=== PATIENT | female | born 1980 | race African-American/Black ===

== ENCOUNTER 2020-06-05 15:32 | Inpatient (IN) | payer OTHER ==
[2020-06-05 19:58] VITALS: BMI 21.9
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
[2020-06-05] MEDS ORDERED: NICOTINE POLACRILEX 2 MG GUM BUC PRN (20:46)
[2020-06-05] MEDS ORDERED: chlordiazePOXIDE HCL 25 MG CAPSULE PO PRN (20:46)
[2020-06-05] MEDS ORDERED: METHOCARBAMOL 500 MG TABLET PO PRN (20:46)
[2020-06-05] MEDS ORDERED: MAGNESIUM CITRATE 300 ML BOTTLE PO PRN (20:46)
[2020-06-05] MEDS ORDERED: BISMUTH SUBSALICYLATE 524 MG/30 ML UD PO PRN (20:46)
[2020-06-05] MEDS ORDERED: IBUPROFEN 400 MG TABLET (FP) PO PRN (20:46)
[2020-06-05] MEDS ORDERED: ACETAMINOPHEN 325 MG TABLET (FP) PO PRN ×2 (20:46)
[2020-06-05] MEDS ORDERED: MENTHOL/PHENOL 1 EACH UD MM PRN (20:46)
[2020-06-05] MEDS ORDERED: MAGNESIUM HYDROX 2400MG/30ML ORAL SUSPENSION 30 ML CUP PO PRN (20:46)
[2020-06-05] MEDS ORDERED: MAG HYDROX/AL HYDROX/SIMETH 30 ML UNIT-DOSE CUP PO PRN (20:46)
[2020-06-05] MEDS ORDERED: hydrOXYzine PAMOATE 25 MG CAPSULE (FP) PO PRN (20:46)
[2020-06-05] MEDS ORDERED: ONDANSETRON *ODT* 4 MG TABLET SL ONE (21:15)
[2020-06-05] MEDS: THIAMINE HCL 100 MG TABLET (FP) PO SCH (22:23)
[2020-06-05] MEDS: chlordiazePOXIDE HCL 25 MG CAPSULE PO SCH (22:23)
[2020-06-05] MEDS: MELATONIN 5 MG TABLETS PO SCH (22:23)
[2020-06-06] MEDS: chlordiazePOXIDE HCL 25 MG CAPSULE PO SCH ×4 (05:59→22:32)
[2020-06-06] MEDS: PRENATAL VITAMINS W/ FOLIC ACID TABLET (FP) PO SCH (10:24)
[2020-06-06] MEDS: NICOTINE 14 MG/24 HOURS TOPICAL PATCH TD SCH (10:24)
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
[2020-06-06 12:04] LABS: HEMATOCRIT 38.3 % (32.4-45.2); HEMOGLOBIN 12.6 GM/dL (10.7-15.3); MCH 31.1 pg (25.7-33.7); MCHC 32.9 g/dl (32.0-36.0); MEAN CELL VOLUME 94.5 fl (80-96); MEAN PLT VOLUME 8.9 fl (7.5-11.1); PLATELET COUNT 192 K/MM3 (134-434); RBC 4.05 M/mm3 (3.60-5.2); RDW 14.8 % (11.6-15.6); WHITE BLOOD COUNT 3.2 K/mm3 (4.0-10.0)
[2020-06-06 12:17] LABS: BILIRUBIN,TOTAL 0.4 mg/dL (0.2-1); BLOOD UREA NITROGEN 12.3 mg/dL (7-18); CALCIUM 8.5 mg/dL (8.5-10.1); CREATININE 0.9 mg/dL (0.55-1.3); POTASSIUM 3.6 mmol/L (3.5-5.1); TOT PROT 6.3 g/dl (6.4-8.2)
--- NOTE | 2020-06-06 13:47 | PN ---
S CIWA - CIWA Score Nausea/Vomitin-Mild Nausea/No Vomiting Muscle Tremors: 3 Anxiety: 3 Agitation: 2 Paroxysmal Sweats: 3 Orientation: 0-Oriented Tacttile Disturbances: 1-Very Mild Itch/Numbness Auditory Disturbances: 0-None Visual Disturbances: 0-None Headache: 0-None Present CIWA-Ar Total Score: 13 B[facility] Progress Note (SOAP) Subjective: Feels ok Objective: 06/06/20 13:44 Last Vital Signs Temp Pulse Resp BP Pulse Ox 97.3 F L 98 H 16 112/71 99 06/06/20 08:43 06/06/20 10:03 06/06/20 08:43 06/06/20 10:03 06/06/20 08:43 Laboratory Tests 06/06/20 06/06/20 06/06/20 07:25 07:25 07:25 WBC 3.2 L RBC 4.05 Hgb 12.6 Hct 38.3 MCV 94.5 MCH 31.1 MCHC 32.9 RDW 14.8 D Plt Count 192 MPV 8.9 Sodium 140 Potassium 3.6 Chloride 107 Carbon Dioxide 25 Anion Gap 8 BUN 12.3 Creatinine 0.9 Est GFR (CKD-EPI)AfAm 94.01 Est GFR (CKD-EPI)NonAf 81.11 Random Glucose 111 H Calcium 8.5 Total Bilirubin 0.4 AST 16 ALT 16 Alkaline Phosphatase 55 Total Protein 6.3 L Albumin 3.0 L Syphilis Serology Non-reactive Labs reviewed: serum glucose 111 (mildly elevated), albumin 3.0 (low) Assessment: 06/06/20 13:45 Withdrawal sxs Noted with mild hyperglycemia and hypoalbuminemia Plan: Continue detox Encouraged PO water intake Hyperglycemia, mild: most likely due to withdrawal, repeat fasting glucose Hypoalbuminemia: encourage diet, continue ensure TID
[2020-06-06] MEDS ORDERED: traZODone HCL 50 MG TABLET (FP) PO SCH (22:00)
[2020-06-06] MEDS: THIAMINE HCL 100 MG TABLET (FP) PO SCH (22:32)
[2020-06-06] MEDS: MELATONIN 5 MG TABLETS PO SCH (22:32)
[2020-06-06] MEDS: levETIRAcetam 250 MG TABLET PO SCH (22:32)
[2020-06-07] MEDS: chlordiazePOXIDE HCL 25 MG CAPSULE PO SCH ×2 (06:19→11:02)
[2020-06-07 06:43] VITALS: TEMP 97.3
--- NOTE | 2020-06-07 09:29 | EKG ---
Test Reason : Blood Pressure : / mmHG Vent. Rate : 058 BPM Atrial Rate : 058 BPM P-R Int : 166 ms QRS Dur : 100 ms QT Int : 448 ms P-R-T Axes : 046 061 058 degrees QTc Int : 439 ms SINUS BRADYCARDIA WITH PREMATURE ATRIAL COMPLEXES OTHERWISE NORMAL ECG NO PREVIOUS ECGS AVAILABLE Confirmed by Sharyn Collins ([id number]) on 06/07/2020 9:29:36 AM Referred By: Confirmed By:Sharyn Collins
[2020-06-07] MEDS ORDERED: SERTRALINE HCL 50 MG TABLET (FP) PO SCH (10:00)
[2020-06-07] MEDS: levETIRAcetam 250 MG TABLET PO SCH (11:01)
[2020-06-07] MEDS: PRENATAL VITAMINS W/ FOLIC ACID TABLET (FP) PO SCH (11:02)
[2020-06-07] MEDS: NICOTINE 14 MG/24 HOURS TOPICAL PATCH TD SCH (11:02)
[2020-06-07 13:50] VITALS: BP 91/46; PULSE 625
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
--- NOTE | 2020-06-07 15:29 | PN ---
[place] Progress Note Note: patient did not want to complete treatment,high risk of relapsing explained,understood, seen by counselor,signed release ama alert,oriented x 3 ambulation on the unit no abdominal pain patient signed release ama stated she will [facility] left the unit in stable condition time spending in discharge 30 minutes
--- NOTE | 2020-06-07 15:31 | DS ---
[facility] Detox Discharge Summary Admission Date: 06/05/20 Discharge Date: 06/07/20 - History Present History: Alcohol Dependence, Cocaine Dependence Additional Comments: alert,oriented x 3 ambulation on the unit no abdominal pain patient did not want to complete treatment,high risk relapsing explained,patient understood, seen by counselor, signed release ama,stated she will go to [facility] for follow up left the unit in stable condition total discharge time 30 minutes Pertinent Past History: ptsd mood disorder substance indued sleep disorder asthma bipolar disorder - Physical Exam Results Vital Signs: Vital Signs Temperature 97.3 F L 06/07/20 12:48 Pulse Rate 625 H 06/07/20 12:48 Respiratory Rate 17 06/07/20 12:48 Blood Pressure 91/46 L 06/07/20 12:48 O2 Sat by Pulse Oximetry (%) 99 06/07/20 13:50 Pertinent Admission Physical Exam Findings: withdrawal sign and symptom - Medication Discharge Medications: Ambulatory Orders Albuterol Sulfate Inhaler - [Ventolin HFA Inhaler -] 2 inh IH Q4H PRN #1 inhaler 04/19/20 - Diagnosis (1) Alcohol dependence with uncomplicated withdrawal Current Visit: Yes Status: Acute (2) Asthma Current Visit: Yes Status: Chronic (3) Bipolar disorder Current Visit: Yes Status: Chronic (4) Cocaine dependence Current Visit: Yes Status: Chronic Qualifiers: Substance use status: uncomplicated Qualified Code(s): F14.20 - Cocaine dependence, uncomplicated (5) Nicotine dependence Current Visit: Yes Status: Chronic Qualifiers: Nicotine product type: cigarettes Substance use status: uncomplicated Qualified Code(s): F17.210 - Nicotine dependence, cigarettes, uncomplicated (6) PTSD (post-traumatic stress disorder) Current Visit: Yes Status: Chronic (7) Mood disorder Current Visit: Yes Status: Suspected (8) Weight loss Current Visit: No Status: Acute - AMA Did Patient Leave Against Medical Advice: Yes
[2020-06-08] MEDS ORDERED: chlordiazePOXIDE HCL 10 MG CAPSULE PO PRN
[2020-06-08] MEDS ORDERED: chlordiazePOXIDE HCL 10 MG CAPSULE PO SCH (05:00)
[2020-06-09] MEDS ORDERED: chlordiazePOXIDE HCL 10 MG CAPSULE PO SCH (05:00)
[2020-06-10] MEDS ORDERED: chlordiazePOXIDE HCL 10 MG CAPSULE PO ONE (05:00)
== END 2020-06-07 16:28 | disposition left against medical advice (07) | DRG 770 ==
LOC: YASAS 15:32 → Y6N 20:54
PROVIDERS: ADMIT Allergy & Immunology; ATTEND Allergy & Immunology
PROC: HZ2ZZZZ Detoxification Services for Substance Abuse Treatment (ICD-10-PCS; principal; 2020-06-05)
DX: F10.230 Alcohol dependence with withdrawal, uncomplicated (principal); F14.20 Cocaine dependence, uncomplicated; F17.210 Nicotine dependence, cigarettes, uncomplicated; F19.280 Other psychoactive substance dependence with psychoactive substance-induced anxiety disorder; F19.24 Other psychoactive substance dependence with psychoactive substance-induced mood disorder; F39 Unspecified mood [affective] disorder; F43.10 Post-traumatic stress disorder, unspecified; F31.9 Bipolar disorder, unspecified; E88.09 Other disorders of plasma-protein metabolism, not elsewhere classified; J45.909 Unspecified asthma, uncomplicated; G40.909 Epilepsy, unspecified, not intractable, without status epilepticus; D64.9 Anemia, unspecified; R63.4 Abnormal weight loss; Z68.21 Body mass index [BMI] 21.0-21.9, adult; Z88.5 Allergy status to narcotic agent; Z56.0 Unemployment, unspecified; Z59.0 Homelessness; R73.9 Hyperglycemia, unspecified; Z86.79 Personal history of other diseases of the circulatory system; Z98.890 Other specified postprocedural states
CPT/HCPCS: 36415; 80053; 85027; 86780; 93005; 93010; U0003

== ENCOUNTER 2020-07-28 12:44 | Inpatient (IN) | payer OTHER ==
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
[2020-07-28 14:54] VITALS: BMI 20.3
[2020-07-28] MEDS ORDERED: ONDANSETRON *ODT* 4 MG TABLET SL PRN (14:54)
[2020-07-28] MEDS ORDERED: MAGNESIUM HYDROX 2400MG/30ML ORAL SUSPENSION 30 ML CUP PO PRN (14:54)
[2020-07-28] MEDS ORDERED: METHOCARBAMOL 500 MG TABLET PO PRN (14:54)
[2020-07-28] MEDS ORDERED: IBUPROFEN 400 MG TABLET (FP) PO PRN (14:54)
[2020-07-28] MEDS ORDERED: MAG HYDROX/AL HYDROX/SIMETH 30 ML UNIT-DOSE CUP PO PRN (14:54)
[2020-07-28] MEDS ORDERED: BISMUTH SUBSALICYLATE 524 MG/30 ML UD PO PRN (14:54)
[2020-07-28] MEDS ORDERED: ACETAMINOPHEN 325 MG TABLET (FP) PO PRN ×2 (14:54)
[2020-07-28] MEDS ORDERED: chlordiazePOXIDE HCL 25 MG CAPSULE PO PRN (14:54)
[2020-07-28] MEDS ORDERED: MENTHOL/PHENOL 1 EACH UD MM PRN (14:54)
[2020-07-28] MEDS ORDERED: MAGNESIUM CITRATE 300 ML BOTTLE PO PRN (14:54)
[2020-07-28] MEDS ORDERED: NICOTINE POLACRILEX 2 MG GUM BUC PRN (14:54)
[2020-07-28] MEDS ORDERED: ALBUTEROL SO4 HFA INHALER IH PRN (14:58)
[2020-07-28 17:43] LABS: HEMATOCRIT 35.2 % (32.4-45.2); HEMOGLOBIN 11.7 GM/dL (10.7-15.3); MCH 31.6 pg (25.7-33.7); MCHC 33.2 g/dl (32.0-36.0); MEAN CELL VOLUME 95.1 fl (80-96); MEAN PLT VOLUME 8.9 fl (7.5-11.1); PLATELET COUNT 175 K/MM3 (134-434); RDW 14.7 % (11.6-15.6); WHITE BLOOD COUNT 3.4 K/mm3 (4.0-10.0)
[2020-07-28 17:56] LABS: BILIRUBIN,TOTAL 0.3 mg/dL (0.2-1); BLOOD UREA NITROGEN 15.3 mg/dL (7-18); CALCIUM 8.5 mg/dL (8.5-10.1); POTASSIUM 3.7 mmol/L (3.5-5.1); TOT PROT 6.3 g/dl (6.4-8.2)
[2020-07-28] MEDS: hydrOXYzine PAMOATE 25 MG CAPSULE (FP) PO SCH ×2 (18:07→23:19)
[2020-07-28] MEDS: chlordiazePOXIDE HCL 25 MG CAPSULE PO SCH ×2 (18:07→23:20)
[2020-07-28] MEDS: PRENATAL VITAMINS W/ FOLIC ACID TABLET (FP) PO SCH (18:07)
[2020-07-28] MEDS: NICOTINE 21 MG/24 HOURS TOPICAL PATCH TD SCH (18:08)
[2020-07-28] MEDS: MELATONIN 5 MG TABLETS PO SCH (23:19)
[2020-07-28] MEDS: THIAMINE HCL 100 MG TABLET (FP) PO SCH (23:20)
[2020-07-29] MEDS: chlordiazePOXIDE HCL 25 MG CAPSULE PO SCH ×4 (06:37→22:29)
[2020-07-29] MEDS: hydrOXYzine PAMOATE 25 MG CAPSULE (FP) PO SCH ×3 (06:38→14:17)
[2020-07-29] MEDS: PRENATAL VITAMINS W/ FOLIC ACID TABLET (FP) PO SCH (11:14)
[2020-07-29] MEDS: NICOTINE 21 MG/24 HOURS TOPICAL PATCH TD SCH (11:14)
[2020-07-29] MEDS ORDERED: hydrOXYzine PAMOATE 25 MG CAPSULE (FP) PO PRN (14:24)
--- NOTE | 2020-07-29 14:26 | PN ---
S CIWA - CIWA Score Nausea/Vomitin-No Nausea/No Vomiting Muscle Tremors: 3 Anxiety: 3 Agitation: 3 Paroxysmal Sweats: 2 Orientation: 0-Oriented Tacttile Disturbances: 0-None Auditory Disturbances: 0-None Visual Disturbances: 0-None Headache: 0-None Present CIWA-Ar Total Score: 11 S Progress Note (SOAP) Subjective: sweats shakes restless Objective: 07/29/20 14:26 Vital Signs Temperature 97.5 F L 07/29/20 09:08 Pulse Rate 70 07/29/20 09:08 Respiratory Rate 18 07/29/20 09:08 Blood Pressure 96/50 L 07/29/20 09:08 O2 Sat by Pulse Oximetry (%) 96 07/29/20 09:08 Laboratory Tests 07/28/20 07/28/20 07/28/20 15:00 15:00 15:10 WBC 3.4 L RBC 3.70 Hgb 11.7 Hct 35.2 MCV 95.1 MCH 31.6 MCHC 33.2 RDW 14.7 Plt Count 175 MPV 8.9 Sodium 140 Potassium 3.7 Chloride 109 H Carbon Dioxide 25 Anion Gap 6 L BUN 15.3 Creatinine 1.0 Est GFR (CKD-EPI)AfAm 82.76 Est GFR (CKD-EPI)NonAf 71.41 Random Glucose 105 Calcium 8.5 Total Bilirubin 0.3 AST 29 ALT 23 Alkaline Phosphatase 102 Total Protein 6.3 L Albumin 3.0 L Syphilis Serology Non-reactive labs noted aaox3 ambulating no acute distress Assessment: 07/29/20 14:26 withdrawals Plan: continue detox
[2020-07-29] MEDS: THIAMINE HCL 100 MG TABLET (FP) PO SCH (22:29)
[2020-07-29] MEDS: MELATONIN 5 MG TABLETS PO SCH (22:29)
[2020-07-30] MEDS: chlordiazePOXIDE HCL 25 MG CAPSULE PO SCH ×4 (06:33→23:46)
[2020-07-30] MEDS: NICOTINE 21 MG/24 HOURS TOPICAL PATCH TD SCH (10:53)
[2020-07-30] MEDS: PRENATAL VITAMINS W/ FOLIC ACID TABLET (FP) PO SCH (10:53)
--- NOTE | 2020-07-30 11:46 | PN ---
[facility] CIWA - CIWA Score Nausea/Vomitin-No Nausea/No Vomiting Muscle Tremors: 3 Anxiety: 2 Agitation: 3 Paroxysmal Sweats: 2 Orientation: 0-Oriented Tacttile Disturbances: 0-None Auditory Disturbances: 0-None Visual Disturbances: 0-None Headache: 0-None Present CIWA-Ar Total Score: 10 S Progress Note (SOAP) Subjective: tired sweats chills interrupted sleep Objective: 07/30/20 11:46 Vital Signs Temperature 98.2 F 07/30/20 05:49 Pulse Rate 60 07/30/20 05:49 Respiratory Rate 16 07/30/20 05:49 Blood Pressure 91/52 L 07/30/20 05:49 O2 Sat by Pulse Oximetry (%) 98 07/30/20 05:49 Laboratory Tests 07/28/20 07/28/20 07/28/20 15:00 15:00 15:10 WBC 3.4 L RBC 3.70 Hgb 11.7 Hct 35.2 MCV 95.1 MCH 31.6 MCHC 33.2 RDW 14.7 Plt Count 175 MPV 8.9 Sodium 140 Potassium 3.7 Chloride 109 H Carbon Dioxide 25 Anion Gap 6 L BUN 15.3 Creatinine 1.0 Est GFR (CKD-EPI)AfAm 82.76 Est GFR (CKD-EPI)NonAf 71.41 Random Glucose 105 Calcium 8.5 Total Bilirubin 0.3 AST 29 ALT 23 Alkaline Phosphatase 102 Total Protein 6.3 L Albumin 3.0 L Syphilis Serology Non-reactive COVID-19 ([place]) 07/28/20 16:35 WBC RBC Hgb Hct MCV MCH MCHC RDW Plt Count MPV Sodium Potassium Chloride Carbon Dioxide Anion Gap BUN Creatinine Est GFR (CKD-EPI)AfAm Est GFR (CKD-EPI)NonAf Random Glucose Calcium Total Bilirubin AST ALT Alkaline Phosphatase Total Protein Albumin Syphilis Serology COVID-19 ([place]) Not detected labs noted aaox3 ambulating no acute distress Assessment: 07/30/20 11:46 withdrawals Plan: continue detox
[2020-07-30] MEDS: MELATONIN 5 MG TABLETS PO SCH (23:46)
[2020-07-30] MEDS: THIAMINE HCL 100 MG TABLET (FP) PO SCH (23:46)
[2020-07-31] MEDS ORDERED: chlordiazePOXIDE HCL 10 MG CAPSULE PO PRN
[2020-07-31] MEDS ORDERED: chlordiazePOXIDE HCL 10 MG CAPSULE PO SCH (05:00)
--- NOTE | 2020-07-31 10:26 | PN ---
[facility] Progress Note Note: Shortly after ECONOMIC SPECIALIST arrived on Detox Unit, Patient was observed walking up and down camacho and becoming quite agitated. Within short time, Patient became verbally and physically aggressive. Security staff called to Detox Unit. Patient observed pushing objects off of counter in front of Nurses' Station onto floor. Patient then went into her room and threw garbage pail onto floor outside of room. Patient then went back to Nurses Station and began to climb over counter at Nurses' Station. Patient became physically and verbally aggressive and confrontational with Security staff as they attempted to assist her off of counter in front of Nurs[facility]' Station. Patient continued to be aggressive and confrontational with Security near Nurses station for several minutes after she was moved off of counter at Nurses' Station. Detox Unit Psychiatrist not available at this time for evaluation of Patient. [facility] ([place], [place]) contacted so that Patient may be transferred there for Psychiatric Evaluation. Report given to Abbey Reeder RN at ER. Patient taken via ambulance to [facility] for Psychiatric Evaluation.
[2020-07-31 11:39] VITALS: BP 92/50; PULSE 81; TEMP 97.5
--- NOTE | 2020-07-31 19:43 | DS ---
[facility] Detox Discharge Summary Admission Date: 07/28/20 Discharge Date: 07/31/20 - History Present History: Alcohol Dependence, Cocaine Dependence Additional Comments: See Previous [facility] Progress Note: Shortly after COLLEGE PHYSICS INSTRUCTOR arrived on Detox Unit, Patient was observed walking up and down camacho and becoming quite agitated. Within short time, Patient became verbally and physically aggressive. Security staff called to Detox Unit. Patient observed pushing objects off of counter in front of [facility] onto floor. Patient then went into her room and threw garbage pail onto floor outside of room. Patient then went back to Nurses Station and began to climb over counter at Nurs[facility]' Station. Patient became physically and verbally aggressive and confrontational with Security staff as they attempted to assist her off of counter in front of Nurses' Station. Patient continued to be aggressive and confrontational with Security near Nurses station for several minutes after she was moved off of counter at Nurses' Station. Detox Unit Psychiatrist not available at this time for evaluation of Patient. [facility] ([place], [place]) contacted so that Patient may be transferred there for Psychiatric Evaluation. Report given to Abbey Reeder RN at ER. Patient taken via ambulance to [facility] for Psychiatric Evaluation. Pertinent Past History: COPD, History of Bipolar Disorder, History of Asthma, History of PTSD, History of Depression, History of CHF, Nicotine Dependence. - Physical Exam Results Vital Signs: Vital Signs Temperature 97.5 F L 07/31/20 09:00 Pulse Rate 81 07/31/20 09:00 Respiratory Rate 20 07/31/20 09:00 Blood Pressure 92/50 L 07/31/20 09:00 O2 Sat by Pulse Oximetry (%) 98 07/31/20 09:00 Pertinent Admission Physical Exam Findings: WITHDRAWAL SYMPTOMS. Laboratory Tests 07/28/20 07/28/20 07/28/20 15:00 15:00 15:10 WBC 3.4 L RBC 3.70 Hgb 11.7 Hct 35.2 MCV 95.1 MCH 31.6 MCHC 33.2 RDW 14.7 Plt Count 175 MPV 8.9 Sodium 140 Potassium 3.7 Chloride 109 H Carbon Dioxide 25 Anion Gap 6 L BUN 15.3 Creatinine 1.0 Est GFR (CKD-EPI)AfAm 82.76 Est GFR (CKD-EPI)NonAf 71.41 Random Glucose 105 Calcium 8.5 Total Bilirubin 0.3 AST 29 ALT 23 Alkaline Phosphatase 102 Total Protein 6.3 L Albumin 3.0 L Syphilis Serology Non-reactive COVID-19 ([place]) 07/28/20 16:35 WBC RBC Hgb Hct MCV MCH MCHC RDW Plt Count MPV Sodium Potassium Chloride Carbon Dioxide Anion Gap BUN Creatinine Est GFR (CKD-EPI)AfAm Est GFR (CKD-EPI)NonAf Random Glucose Calcium Total Bilirubin AST ALT Alkaline Phosphatase Total Protein Albumin Syphilis Serology COVID-19 ([place]) Not detected Lab Results noted. - Treatment Hospital Course: Detox Protocol Followed Patient has Accepted a Rehab Referral to: Pt. transferred to [facility] ER for Psychiatric Evaluation. - Medication Discharge Medications: Ambulatory Orders Albuterol Sulfate Inhaler - [Ventolin HFA Inhaler -] 2 inh IH Q4H PRN #1 inhaler 04/19/20 - Diagnosis (1) Alcohol dependence with uncomplicated withdrawal Status: Acute (2) Asthma Status: Chronic (3) Nicotine dependence Status: Chronic Qualifiers: Nicotine product type: cigarettes Substance use status: uncomplicated Qualified Code(s): F17.210 - Nicotine dependence, cigarettes, uncomplicated (4) PTSD (post-traumatic stress disorder) Status: Chronic (5) Substance induced mood disorder Status: Acute (6) Bipolar disorder Status: Chronic Qualifiers: Active/Remission status: remission status unspecified Qualified Code(s): F31.9 - Bipolar disorder, unspecified - AMA Did Patient Leave Against Medical Advice: No
[2020-08-01] MEDS ORDERED: chlordiazePOXIDE HCL 10 MG CAPSULE PO SCH (05:00)
[2020-08-02] MEDS ORDERED: chlordiazePOXIDE HCL 10 MG CAPSULE PO ONE (05:00)
== END 2020-07-31 09:28 | disposition short-term general hospital (02) | DRG 774 ==
LOC: YASAS 12:44 → Y6N 16:31
PROVIDERS: ADMIT Allergy & Immunology; ATTEND Allergy & Immunology
PROC: HZ2ZZZZ Detoxification Services for Substance Abuse Treatment (ICD-10-PCS; principal; 2020-07-28)
DX: F10.230 Alcohol dependence with withdrawal, uncomplicated (principal); F14.20 Cocaine dependence, uncomplicated; F17.210 Nicotine dependence, cigarettes, uncomplicated; F19.24 Other psychoactive substance dependence with psychoactive substance-induced mood disorder; F31.9 Bipolar disorder, unspecified; F43.10 Post-traumatic stress disorder, unspecified; J44.9 Chronic obstructive pulmonary disease, unspecified; J45.901 Unspecified asthma with (acute) exacerbation; Z88.5 Allergy status to narcotic agent
CPT/HCPCS: 36415; 80053; 85027; 86780; U0003

== ENCOUNTER 2021-02-08 18:24 | Inpatient (IN) | payer OTHER ==
[2021-02-08 23:36] VITALS: BMI 19.1
[2021-02-08] MEDS ORDERED: MAGNESIUM CITRATE 300 ML BOTTLE PO PRN (23:54)
[2021-02-08] MEDS ORDERED: chlordiazePOXIDE HCL 25 MG CAPSULE PO PRN (23:54)
[2021-02-08] MEDS ORDERED: MENTHOL/PHENOL 1 EACH UD MM PRN (23:54)
[2021-02-08] MEDS ORDERED: MAG HYDROX/AL HYDROX/SIMETH 30 ML UNIT-DOSE CUP PO PRN (23:54)
[2021-02-08] MEDS ORDERED: NICOTINE POLACRILEX 2 MG GUM BUC PRN (23:54)
[2021-02-08] MEDS ORDERED: ACETAMINOPHEN 325 MG TABLET (FP) PO PRN ×2 (23:54)
[2021-02-08] MEDS ORDERED: METHOCARBAMOL 500 MG TABLET PO PRN (23:54)
[2021-02-08] MEDS ORDERED: BISMUTH SUBSALICYLATE 524 MG/30 ML UD PO PRN (23:54)
[2021-02-08] MEDS ORDERED: ONDANSETRON *ODT* 4 MG TABLET SL PRN (23:54)
[2021-02-08] MEDS ORDERED: MAGNESIUM HYDROX 2400MG/30ML ORAL SUSPENSION 30 ML CUP PO PRN (23:54)
[2021-02-09] MEDS ORDERED: BISMUTH SUBSALICYLATE 524 MG/30 ML UD PO PRN
[2021-02-09] MEDS ORDERED: ACETAMINOPHEN 325 MG TABLET (FP) PO PRN ×2
[2021-02-09] MEDS ORDERED: MAGNESIUM HYDROX 2400MG/30ML ORAL SUSPENSION 30 ML CUP PO PRN
[2021-02-09] MEDS ORDERED: METHOCARBAMOL 500 MG TABLET PO PRN
[2021-02-09] MEDS ORDERED: ONDANSETRON *ODT* 4 MG TABLET SL PRN
[2021-02-09] MEDS ORDERED: MENTHOL/PHENOL 1 EACH UD MM PRN
[2021-02-09] MEDS ORDERED: MAG HYDROX/AL HYDROX/SIMETH 30 ML UNIT-DOSE CUP PO PRN
[2021-02-09] MEDS ORDERED: MAGNESIUM CITRATE 300 ML BOTTLE PO PRN
[2021-02-09] MEDS ORDERED: NICOTINE POLACRILEX 2 MG GUM BUC PRN
[2021-02-09] MEDS ORDERED: IBUPROFEN 400 MG TABLET (FP) PO PRN
[2021-02-09] MEDS: IBUPROFEN 400 MG TABLET (FP) PO PRN ×2 (02:00→23:14)
[2021-02-09] MEDS: chlordiazePOXIDE HCL 25 MG CAPSULE PO SCH ×4 (07:24→23:13)
[2021-02-09] MEDS ORDERED: PRENATAL VITAMINS W/ FOLIC ACID TABLET (FP) PO SCH (10:00)
[2021-02-09] MEDS: NICOTINE 14 MG/24 HOURS TOPICAL PATCH TD SCH (10:25)
[2021-02-09] MEDS: PRENATAL VITAMINS W/ FOLIC ACID TABLET (FP) PO SCH (10:25)
[2021-02-09] MEDS: SERTRALINE HCL 50 MG TABLET (FP) PO SCH (10:25)
[2021-02-09 10:39] LABS: HEMOGLOBIN 12.2 GM/dL (10.7-15.3); MCH 31.5 pg (25.7-33.7); MEAN CELL VOLUME 95.4 fl (80-96); MEAN PLT VOLUME 8.4 fl (7.5-11.1); PLATELET COUNT 198 K/MM3 (134-434); RBC 3.88 M/mm3 (3.60-5.2); RDW 15.3 % (11.6-15.6); WHITE BLOOD COUNT 5.9 K/mm3 (4.0-10.0)
[2021-02-09 11:01] LABS: POTASSIUM 3.6 mmol/L (3.5-5.1)
[2021-02-09 11:34] LABS: CALCIUM 8.8 mg/dL (8.5-10.1)
[2021-02-09 11:35] LABS: ALBUMIN 2.9 g/dl (3.4-5.0); BLOOD UREA NITROGEN 14.7 mg/dL (7-18)
[2021-02-09 11:39] LABS: CREATININE 0.8 mg/dL (0.55-1.3)
[2021-02-09 11:40] LABS: BILIRUBIN,TOTAL 0.2 mg/dL (0.2-1); TOT PROT 6.4 g/dl (6.4-8.2)
[2021-02-09] MEDS ORDERED: MELATONIN 5 MG TABLETS PO SCH (22:00)
[2021-02-09] MEDS ORDERED: THIAMINE HCL 100 MG TABLET (FP) PO SCH (22:00)
[2021-02-09] MEDS: THIAMINE HCL 100 MG TABLET (FP) PO SCH (23:13)
[2021-02-09] MEDS: QUEtiapine FUMARATE 100 MG TABLET (FP) PO SCH (23:13)
[2021-02-09] MEDS: MELATONIN 5 MG TABLETS PO SCH (23:13)
[2021-02-10] MEDS ORDERED: chlordiazePOXIDE HCL 10 MG CAPSULE PO PRN
[2021-02-10] MEDS: OFLOXACIN 0.3% OPHTHALMIC SOLUTION 5 ML BOTTLE OS SCH ×5 (01:28→22:49)
[2021-02-10] MEDS: chlordiazePOXIDE 5 MG CAPSULE PO SCH ×4 (07:21→22:40)
[2021-02-10] MEDS: SERTRALINE HCL 50 MG TABLET (FP) PO SCH (10:08)
[2021-02-10] MEDS: PRENATAL VITAMINS W/ FOLIC ACID TABLET (FP) PO SCH (10:08)
[2021-02-10] MEDS: NICOTINE 14 MG/24 HOURS TOPICAL PATCH TD SCH (10:11)
[2021-02-10] MEDS: IBUPROFEN 400 MG TABLET (FP) PO PRN (14:32)
[2021-02-10] MEDS: QUEtiapine FUMARATE 100 MG TABLET (FP) PO SCH (22:40)
[2021-02-10] MEDS: MELATONIN 5 MG TABLETS PO SCH (22:40)
[2021-02-10] MEDS: THIAMINE HCL 100 MG TABLET (FP) PO SCH (22:40)
[2021-02-11] MEDS: chlordiazePOXIDE HCL 10 MG CAPSULE PO SCH ×2 (06:59→10:31)
[2021-02-11] MEDS: OFLOXACIN 0.3% OPHTHALMIC SOLUTION 5 ML BOTTLE OS SCH ×2 (06:59→14:06)
[2021-02-11 09:05] VITALS: BP 92/54; PULSE 67; TEMP 96.7
[2021-02-11] MEDS: NICOTINE 14 MG/24 HOURS TOPICAL PATCH TD SCH (10:31)
[2021-02-11] MEDS: IBUPROFEN 400 MG TABLET (FP) PO PRN (10:32)
[2021-02-11] MEDS: SERTRALINE HCL 50 MG TABLET (FP) PO SCH (10:33)
[2021-02-11] MEDS: PRENATAL VITAMINS W/ FOLIC ACID TABLET (FP) PO SCH (10:33)
[2021-02-12] MEDS ORDERED: chlordiazePOXIDE HCL 10 MG CAPSULE PO SCH (05:00)
[2021-02-13] MEDS ORDERED: chlordiazePOXIDE HCL 10 MG CAPSULE PO ONE (05:00)
== END 2021-02-11 11:20 | disposition other institution (70) | DRG 774 ==
LOC: YASAS 18:24 → Y6N 02-09 00:37 → Y3N 02-09 22:43
PROVIDERS: ADMIT Allergy & Immunology; ATTEND Allergy & Immunology
PROC: HZ2ZZZZ Detoxification Services for Substance Abuse Treatment (ICD-10-PCS; principal; 2021-02-09)
DX: F10.230 Alcohol dependence with withdrawal, uncomplicated (principal); F14.20 Cocaine dependence, uncomplicated; F17.210 Nicotine dependence, cigarettes, uncomplicated; F19.280 Other psychoactive substance dependence with psychoactive substance-induced anxiety disorder; F19.282 Other psychoactive substance dependence with psychoactive substance-induced sleep disorder; F19.24 Other psychoactive substance dependence with psychoactive substance-induced mood disorder; F39 Unspecified mood [affective] disorder; F31.9 Bipolar disorder, unspecified; F43.10 Post-traumatic stress disorder, unspecified; J44.9 Chronic obstructive pulmonary disease, unspecified; H02.845 Edema of left lower eyelid; H02.844 Edema of left upper eyelid; D50.9 Iron deficiency anemia, unspecified; G40.909 Epilepsy, unspecified, not intractable, without status epilepticus; Z59.0 Homelessness; Z88.5 Allergy status to narcotic agent
CPT/HCPCS: 36415; 80053; 81025; 85027; 86780; C9803; U0003

== ENCOUNTER 2021-07-29 12:30 | Inpatient (IN) | payer OTHER ==
[2021-07-29 14:03] VITALS: BP 108/66; PULSE 76; TEMP 97.2; BMI 17.4
[2021-07-29] MEDS ORDERED: IBUPROFEN 400 MG TABLET (FP) PO PRN (17:57)
[2021-07-29] MEDS ORDERED: hydrOXYzine PAMOATE 25 MG CAPSULE (FP) PO PRN (17:57)
[2021-07-29] MEDS ORDERED: LOPERAMIDE HCL 2 MG CAPSULE PO PRN (17:57)
[2021-07-29] MEDS ORDERED: guaiFENesin 200 MG/10 ML 10 ML UNIT-DOSE CUPS PO PRN (17:57)
[2021-07-29] MEDS ORDERED: NICOTINE 10 MG CARTRIDGE (INHALER) IH PRN (17:57)
[2021-07-29] MEDS ORDERED: MAGNESIUM CITRATE 300 ML BOTTLE PO PRN (17:57)
[2021-07-29] MEDS ORDERED: ACETAMINOPHEN 325 MG TABLET (FP) PO PRN (17:57)
[2021-07-29] MEDS ORDERED: P-EPHED 60MG/TRIPROLIDI 2.5MG TABLET PO PRN (17:57)
[2021-07-29] MEDS ORDERED: MAGNESIUM HYDROX 2400MG/30ML ORAL SUSPENSION 30 ML CUP PO PRN (17:57)
[2021-07-29] MEDS ORDERED: MAG HYDROX/AL HYDROX/SIMETH 30 ML UNIT-DOSE CUP PO PRN (17:57)
[2021-07-29] MEDS ORDERED: THIAMINE HCL 100 MG TABLET (FP) PO SCH (22:00)
[2021-07-29] MEDS ORDERED: MELATONIN 5 MG TABLETS PO SCH (22:00)
[2021-07-30] MEDS ORDERED: PRENATAL VITAMINS W/ FOLIC ACID TABLET (FP) PO SCH (10:00)
[2021-07-30] MEDS ORDERED: NICOTINE 7 MG/24 HOURS TOPICAL PATCH TD SCH (10:00)
== END 2021-07-29 19:44 | disposition short-term general hospital (02) | DRG 772 ==
LOC: YASAS 12:30 → Y5N 18:15
PROVIDERS: ADMIT Allergy & Immunology; ATTEND Allergy & Immunology
PROC: HZ42ZZZ Group Counseling for Substance Abuse Treatment, Cognitive-Behavioral (ICD-10-PCS; principal; 2021-07-29)
DX: F10.20 Alcohol dependence, uncomplicated (principal); F14.20 Cocaine dependence, uncomplicated; F17.210 Nicotine dependence, cigarettes, uncomplicated; F31.9 Bipolar disorder, unspecified; F43.10 Post-traumatic stress disorder, unspecified; F41.9 Anxiety disorder, unspecified; J44.9 Chronic obstructive pulmonary disease, unspecified; R63.4 Abnormal weight loss; Z68.1 Body mass index [BMI] 19.9 or less, adult; Z56.0 Unemployment, unspecified; Z59.0 Homelessness
CPT/HCPCS: 81025; C9803; U0003; U0005

== ENCOUNTER 2022-05-12 13:40 | Inpatient (IN) | payer OTHER ==
[2022-05-12 15:24] VITALS: BMI 17.8
[2022-05-12] MEDS ORDERED: IBUPROFEN 400 MG TABLET (FP) PO PRN (16:31)
[2022-05-12] MEDS ORDERED: MAGNESIUM HYDROX 2400MG/30ML ORAL SUSPENSION 30 ML CUP PO PRN (16:31)
[2022-05-12] MEDS ORDERED: BENZOCAINE/MENTHOL (CHLORASEPTIC ) LOZENGE MM PRN (16:31)
[2022-05-12] MEDS ORDERED: LOPERAMIDE HCL 2 MG CAPSULE PO PRN (16:31)
[2022-05-12] MEDS ORDERED: BISMUTH SUBSALICYLATE 524 MG/30 ML PO PRN (16:31)
[2022-05-12] MEDS ORDERED: ONDANSETRON *ODT* 4 MG TABLET SL PRN (16:31)
[2022-05-12] MEDS ORDERED: MAG HYDROX/AL HYDROX/SIMETH 30 ML UNIT-DOSE CUP PO PRN (16:31)
[2022-05-12] MEDS ORDERED: DICYCLOMINE HCL 10 MG CAPSULE PO PRN (16:31)
[2022-05-12] MEDS ORDERED: MAGNESIUM CITRATE 300 ML BOTTLE PO PRN (16:31)
[2022-05-12] MEDS ORDERED: IBUPROFEN 600 MG TABLET (FP) PO PRN (16:31)
[2022-05-12] MEDS ORDERED: NICOTINE 10 MG CARTRIDGE (INHALER) IH PRN (16:31)
[2022-05-12] MEDS ORDERED: ACETAMINOPHEN 325 MG TABLET (FP) PO PRN ×2 (16:31)
[2022-05-12] MEDS ORDERED: diazePAM 5 MG TABLET PO PRN (17:30)
[2022-05-12] MEDS: diazePAM 5 MG TABLET PO SCH ×2 (18:34→22:41)
[2022-05-12] MEDS: hydrOXYzine PAMOATE 25 MG CAPSULE (FP) PO PRN (18:34)
[2022-05-12] MEDS ORDERED: traZODone HCL 100 MG TABLET (FP) PO ONE (22:00)
[2022-05-12] MEDS ORDERED: TOPIRAMATE 25 MG TABLET PO ONE (22:00)
[2022-05-12] MEDS: THIAMINE HCL 100 MG TABLET (FP) PO SCH (22:41)
[2022-05-12] MEDS: MELATONIN 5 MG TABLETS PO SCH (22:41)
[2022-05-13] MEDS: diazePAM 5 MG TABLET PO SCH ×5 (06:03→22:44)
[2022-05-13 10:11] LABS: HEMATOCRIT 38.5 % (32.4-45.2); HEMOGLOBIN 12.6 GM/dL (10.7-15.3); MCHC 32.8 g/dl (32.0-36.0); MEAN CELL VOLUME 94.3 fl (80-96); MEAN PLT VOLUME 7.8 fl (7.5-11.1); PLATELET COUNT 193 10^3/uL (134-434); RBC 4.09 M/mm3 (3.60-5.2); RDW 14.2 % (11.6-15.6); WHITE BLOOD COUNT 3.2 K/mm3 (4.0-10.0)
[2022-05-13 10:38] LABS: ALBUMIN 2.9 g/dl (3.4-5.0); CALCIUM 8.4 mg/dL (8.5-10.1)
[2022-05-13 10:39] LABS: BLOOD UREA NITROGEN 14.8 mg/dL (7-18)
[2022-05-13 10:41] LABS: CREATININE 0.8 mg/dL (0.55-1.3)
[2022-05-13 10:43] LABS: BILIRUBIN,TOTAL 0.3 mg/dL (0.2-1); TOT PROT 6.1 g/dl (6.4-8.2)
[2022-05-13] MEDS: NICOTINE 14 MG/24 HOURS TOPICAL PATCH TD SCH (11:56)
[2022-05-13] MEDS: PRENATAL VITAMINS W/ FOLIC ACID TABLET (FP) PO SCH (11:56)
[2022-05-13] MEDS: hydrOXYzine PAMOATE 25 MG CAPSULE (FP) PO PRN (18:32)
[2022-05-13] MEDS: METHOCARBAMOL 500 MG TABLET PO PRN (18:32)
[2022-05-13] MEDS: MELATONIN 5 MG TABLETS PO SCH (22:00)
[2022-05-14] MEDS: THIAMINE HCL 100 MG TABLET (FP) PO SCH (02:45)
[2022-05-14] MEDS: METHOCARBAMOL 500 MG TABLET PO PRN (02:45)
[2022-05-14] MEDS: diazePAM 5 MG TABLET PO SCH ×2 (06:21→13:48)
[2022-05-14 06:37] VITALS: BP 94/58; PULSE 64; TEMP 97.7
[2022-05-14] MEDS: PRENATAL VITAMINS W/ FOLIC ACID TABLET (FP) PO SCH (10:30)
[2022-05-14] MEDS: NICOTINE 14 MG/24 HOURS TOPICAL PATCH TD SCH (10:30)
[2022-05-15] MEDS ORDERED: diazePAM 5 MG TABLET PO SCH (06:00)
[2022-05-16] MEDS ORDERED: diazePAM 5 MG TABLET PO ONE (06:00)
== END 2022-05-14 09:15 | disposition home or self-care (01) | DRG 774 ==
LOC: YASAS 13:40 → Y6N 16:55
PROVIDERS: ADMIT Allergy & Immunology; ATTEND Surgery
PROC: HZ2ZZZZ Detoxification Services for Substance Abuse Treatment (ICD-10-PCS; principal; 2022-05-12)
DX: F10.230 Alcohol dependence with withdrawal, uncomplicated (principal); F10.220 Alcohol dependence with intoxication, uncomplicated; F14.20 Cocaine dependence, uncomplicated; F17.213 Nicotine dependence, cigarettes, with withdrawal; F91.8 Other conduct disorders; J45.909 Unspecified asthma, uncomplicated; U07.1 COVID-19; Z88.6 Allergy status to analgesic agent; Z91.19 Patient's noncompliance with other medical treatment and regimen
CPT/HCPCS: 36415; 80053; 85027; 86780; C9803-CS; U0003; U0005